=== PATIENT | female | born 1985 | race African-American/Black ===

== ENCOUNTER 2022-08-04 20:36 | Emergency (ER) | payer SELFPAY ==
[2022-08-04] MEDS ORDERED: predniSONE 20 MG TAB ONE (21:13)
[2022-08-04] MEDS ORDERED: Ibuprofen 200 MG TAB ONE (21:26)
== END 2022-08-04 22:06 | disposition home or self-care (01) ==
LOC: ERS 20:36
DX: J02.9 Acute pharyngitis, unspecified (principal)
CPT/HCPCS: 87081; 87430; 99283; J7512

== ENCOUNTER 2022-08-05 20:50 | Emergency (ER) | payer SELFPAY | END 2022-08-05 23:49 | disposition home or self-care (01) | LOC: ERS 20:50 | DX: R05.9 Cough, unspecified (principal); Z20.822 Contact with and (suspected) exposure to COVID-19 | CPT/HCPCS: 99283; U0003; U0005 ==

== ENCOUNTER 2023-03-16 20:56 | Emergency (ER) | payer SELFPAY | END 2023-03-16 21:23 | LOC: ERS 20:56 | DX: F19.921 Other psychoactive substance use, unspecified with intoxication with delirium (principal); F17.210 Nicotine dependence, cigarettes, uncomplicated | CPT/HCPCS: 99283 ==